=== PATIENT | female | born 1945 | race Caucasian/White ===

== ENCOUNTER → 2016-05-25 | Outpatient (CLI) | payer OTHER, BC | LOC: BMCIMAGING 08:58 | DX: Z12.31 Encounter for screening mammogram for malignant neoplasm of breast (principal) | CPT/HCPCS: G0202 ==

== ENCOUNTER → 2017-03-30 | Outpatient (CLI) | payer OTHER, BC | LOC: FIMAGING 08:47 | PROVIDERS: ATTEND Obstetrics & Gynecology | DX: Z13.820 Encounter for screening for osteoporosis (principal); M85.89 Other specified disorders of bone density and structure, multiple sites; Z78.0 Asymptomatic menopausal state ==

== ENCOUNTER → 2017-05-30 | Outpatient (CLI) | payer OTHER, BC | LOC: BMCIMAGING 08:55 | PROVIDERS: ATTEND Obstetrics & Gynecology | DX: Z12.31 Encounter for screening mammogram for malignant neoplasm of breast (principal) ==

== ENCOUNTER → 2017-11-05 | Outpatient (CLI) | payer OTHER, BC | LOC: BMCIMAGING 13:28 | PROVIDERS: ATTEND Internal Medicine | DX: M24.08 Loose body, other site (principal); M25.812 Other specified joint disorders, left shoulder ==

== ENCOUNTER → 2017-11-11 | Outpatient (CLI) | payer OTHER, BC | LOC: FIMAGING 12:24 | PROVIDERS: ATTEND Internal Medicine | DX: M11.212 Other chondrocalcinosis, left shoulder (principal); M12.58 Traumatic arthropathy, other specified site ==

== ENCOUNTER → 2018-02-18 | Outpatient (CLI) | payer OTHER, BC | LOC: BMCIMAGING 13:26 | PROVIDERS: ATTEND Nurse Practitioner Adult Health | DX: M11.261 Other chondrocalcinosis, right knee (principal); M25.861 Other specified joint disorders, right knee ==

== ENCOUNTER 2018-03-06 20:27 | Emergency (ER) | payer OTHER, BC ==
[2018-03-06 20:32] VITALS: BP 171/104
[2018-03-06] MEDS ORDERED: PROPARACAINE 0.5% 15 ML OPHT DROP OP ONE (20:35)
[2018-03-06] MEDS ORDERED: FLUORESCEIN SODIUM 1 MG STRIP OP ONE (20:38)
[2018-03-06] MEDS ORDERED: OFLOXACIN 0.3% SOLN PREPACK OPHT.BTL TAKEHOME ONE (20:57)
--- NOTE | 2018-03-06 20:57 | EDPHY ---
H & P Stated Complaint: SOMETHING GOT INTO R EYE 4 HRS AGO Time Seen by Provider: 03/06/18 20:41 HPI/ROS: CHIEF COMPLAINT: Foreign body right eye HISTORY OF PRESENT ILLNESS: The patient is a 72-year-old female who was walking outside and was very windy. She felt a foreign body hit her in the right eye. She has had pain in irritation ever since. She has a history of cataract surgery in that eye [address] Terry Holman[address] She has not had any discharge. No bleeding. Slightly blurry vision and irritation. Severity: Moderate Modifying factors: Improved completely with proparacaine drops REVIEW OF SYSTEMS: Constitutional: denies: chills, fever, recent illness, recent injury EENTM: Is see HPI denies: double vision, nose congestion Respiratory: denies: cough, shortness of breath Cardiac: denies: chest pain, irregular heart rate, lightheadedness, palpitations Gastrointestinal/Abdominal: denies: abdominal pain, diarrhea, nausea, vomiting, blood streaked stools Genitourinary: denies: dysuria, frequency, hematuria, pain Musculoskeletal: denies: joint pain, muscle pain Skin: denies: lesions, rash, jaundice, bruising Neurological: denies: headache, numbness, paresthesia, tingling, dizziness, weakness Hematologic/Lymphatic: denies: blood clots, easy bleeding, easy bruising Immunologic/allergic: denies: HIV/AIDS, transplant 10 systems reviewed and negative except as noted EXAM: GENERAL: Well-appearing, well-nourished and in no acute distress. HEAD: Atraumatic, normocephalic. EYES: Pupils equal round and reactive to light, extraocular movements intact, sclera anicteric, conjunctiva are slightly injected. Corneal abrasions seen and obvious, in central visual axis. No other foreign body appreciated when lids everted and examined with magnifying glass ENT: TMs normal, nares patent, oropharynx clear without exudates. Moist mucous membranes. NECK: Normal range of motion, supple without lymphadenopathy or JVD. LUNGS: Breath sounds clear to auscultation bilaterally and equal. No wheezes rales or rhonchi. HEART: Regular rate and rhythm without murmurs, rubs or gallops. ABDOMEN: Soft, nontender, normoactive bowel sounds. No guarding, no rebound. No masses appreciated. BACK: No CVA tenderness, no spinal tenderness, step-offs or deformities EXTREMITIES: Normal range of motion, no pitting or edema. No clubbing or cyanosis. NEUROLOGICAL: Cranial nerves II through XII grossly intact. Normal speech, normal gait. 5/5 strength, normal movement in all extremities, normal sensation , normal reflexes PSYCH: Normal mood, normal affect. SKIN: Warm, dry, normal turgor, no visible rashes or lesions. Source: Patient, Family Exam Limitations: No limitations - Personal History Current Tetanus/Diphtheria Vaccine: Yes Current Tetanus Diphtheria and Acellular Pertussis (TDAP): Yes - Medical/Surgical History Hx Asthma: No Hx Chronic Respiratory Disease: No Hx Diabetes: No Hx Cardiac Disease: No Hx Renal Disease: No Hx Cirrhosis: No Hx Alcoholism: No Hx HIV/AIDS: No Hx Splenectomy or Spleen Trauma: No Other PMH: CATERAC SURGGERY TO R EYE - Family History Significant Family History: No pertinent family hx - Social History Smoking Status: Never smoked Alcohol Use: None Constitutional: Initial Vital Signs Temperature (C) 36.7 C 03/06/18 20:29 Heart Rate 83 03/06/18 20:29 Respiratory Rate 18 03/06/18 20:29 Blood Pressure 171/104 H 03/06/18 20:29 O2 Sat (%) 95 03/06/18 20:29 O2 Delivery Mode Room Air Allergies/Adverse Reactions: No Known Allergies Allergy (Unverified 03/06/18 20:32) Home Medications: Medication Instructions Recorded NK [No Known Home Meds] 09/12/15 Medical Decision Making ED Course/Re-evaluation: The patient feels completely better with proparacaine drops. The patient has fluorescein uptake consistent with corneal abrasion. It does involve the central visual axis. She will follow up with her control valve mechanic Dr. Holman in the next 48 hr. I have called our office to encouraged them to see her soon. I will start her on Ocuflox drops. We discussed instructions. We discussed indications for returning. No sign of perforation. Negative Cecil sign. Mild conjunctival and lid edema consistent with itching and rubbing her eye. I spoke with the ophthalmology on-call for Dr. Holman who agrees with plan. Differential Diagnosis: Partial list of the Differential diagnosis considered include but were not limited to; corneal abrasion, foreign body and although unlikely based on the history and physical exam, I also considered perforation, rust ring, iritis. I discussed these differential diagnoses and the plan with the patient as well as the usual and expected course. The patient understands that the diagnosis is provisional and that in medicine we are not always correct and that further workup is often warranted. Usual and customary warnings were given. All of the patient's questions were answered. The patient was instructed to return to the emergency department should the symptoms at all worsen or return, otherwise to followup with the physician as we discussed. - Data Points Medications Given: Discontinued Medications Ofloxacin (Ocuflox 0.3% Opht Drops Prepack) 1 btl TAKEHOME EDNOW ONE Stop: 03/06/18 20:58 Last Admin: 03/06/18 21:10 Dose: 1 btl Proparacaine HCl (Alcaine 0.5%) 2 drops OP EDNOW ONE Stop: 03/06/18 20:36 Last Admin: 03/06/18 20:47 Dose: 2 drop Departure - Departure Disposition: Home, Routine, Self-Care Clinical Impression: Corneal abrasion Qualifiers: Encounter type: initial encounter Laterality: right Qualified Code(s): S05.01XA - Injury of conjunctiva and corneal abrasion without foreign body, right eye, initial encounter Condition: Fair Instructions: Corneal Abrasion (ED) Additional Instructions: Use the Ocuflox eyedrops 2 drops every 4 hr until you follow up with the control valve mechanic. Referrals: Kelly Barajas MD [Primary Care Provider] - As per Instructions Terry Holman MD [Non Staff Provider ()] - 1-2 days without fail
== END 2018-03-06 21:13 | disposition home or self-care (01) ==
DX: S05.01XA Injury of conjunctiva and corneal abrasion without foreign body, right eye, initial encounter (principal); Y93.01 Activity, walking, marching and hiking; X58.XXXA Exposure to other specified factors, initial encounter

== ENCOUNTER → 2018-06-06 | Outpatient (CLI) | payer OTHER, BC | LOC: BMCIMAGING 08:33 | PROVIDERS: ATTEND Internal Medicine | DX: Z12.31 Encounter for screening mammogram for malignant neoplasm of breast (principal) ==

== ENCOUNTER → 2018-07-07 | Outpatient (CLI) | payer OTHER, BC | LOC: FIMAGING 12:23 | PROVIDERS: ATTEND Orthopaedic Surgery | DX: M23.221 Derangement of posterior horn of medial meniscus due to old tear or injury, right knee (principal); M23.251 Derangement of posterior horn of lateral meniscus due to old tear or injury, right knee; M23.241 Derangement of anterior horn of lateral meniscus due to old tear or injury, right knee; M94.8X6 Other specified disorders of cartilage, lower leg; M76.891 Other specified enthesopathies of right lower limb, excluding foot; M25.461 Effusion, right knee; M23.41 Loose body in knee, right knee ==